=== PATIENT | female | born 1990 | race Caucasian/White ===

== ENCOUNTER 2016-10-08 20:51 | Emergency (ER) | payer MEDICAID ==
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
[2016-10-08] MEDS ORDERED: MVI, ADULT NO.4 WITH VIT K 10 ML, FOLIC ACID SYRINGE for ER 1 MG, THIAMINE 100 MG in IV... IV ONE ×4 (21:00)
== END 2016-10-08 22:48 | disposition home or self-care (01) ==
LOC: ER 20:51
DX: F20.9 Schizophrenia, unspecified (principal); R41.82 Altered mental status, unspecified; M79.672 Pain in left foot; M79.671 Pain in right foot; F19.10 Other psychoactive substance abuse, uncomplicated; Z91.19 Patient's noncompliance with other medical treatment and regimen
CPT/HCPCS: 82947; 99283

== ENCOUNTER 2016-10-08 23:53 | Observation (INO) | payer MEDICAID ==
[~2016-10-08] VITALS: Ht 162.6 cm; Wt 58.5 kg
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
--- NOTE | 2016-10-09 00:31 | EKG ---
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
[2016-10-09] MEDS ORDERED: DIPHENHYDRAMINE 50 MG/ML VIAL IV ONE (01:00)
[2016-10-09] MEDS ORDERED: IV RINGERS SOLUTION,LACTATED 1,000 ML IV SCH (01:00)
[2016-10-09] MEDS ORDERED: HALOPERIDOL LACT 5 MG/ML VIAL. IVP ONE (01:00)
[2016-10-09] MEDS ORDERED: LORAZEPAM 2 MG/ML VIAL IV ONE (01:00)
[2016-10-09] MEDS ORDERED: HALOPERIDOL DECANOATE IM ER 50 MG/ML VIAL. IM ONE ×2 (01:00→03:30)
--- NOTE | 2016-10-09 01:14 | RAD ---
CT head without contrast: Reason for examination: Mental status changes with confusion and lethargy tonight. Axial images were obtained through the brain. No contrast was administered. Ventricular systems are symmetric and not abnormally dilated. No midline shift is seen. There is no evidence of intracranial hemorrhage, infarct mass or edema. No abnormalities are seen in the orbits. The paranasal sinuses and mastoid air cells are clear. No acute abnormalities seen in the skull. Impression: No acute intracranial abnormality evident. Electronically signed by: Lucie Escobar MD (Oct 09, 2016 01:13:54)
[2016-10-09 01:18] LABS: BASO # 0.1 x10^3/uL (0.0-0.2); BASO % 1 % (0-3); EOS # 0.4 x10^3/uL (0.0-0.7); EOS % 3 % (0-3); HEMATOCRIT 39.7 % (36.0-47.0); HEMOGLOBIN 13.1 g/dL (12.0-15.5); LYMPH # 3.9 x10^3/uL (1.0-4.8); LYMPH % 32 % (24-48); MEAN CORPUSCULAR HEMOGLOBIN 30 pg (25-35); MEAN CORPUSCULAR HGB CONC 33 g/dL (31-37); MEAN CORPUSCULAR VOLUME 91 fL (79-100); MONO # 0.9 x10^3/uL (0.0-1.1); MONO % 7 % (0-9); NEUT # 6.8 x10^3uL (1.8-7.7); NEUT % 57 % (31-73); PLATELET COUNT 445 x10^3/uL (140-400); RED BLOOD COUNT 4.36 x10^6/uL (3.50-5.40); RED CELL DISTRIBUTION WIDTH 13.3 % (11.5-14.5)
[2016-10-09 01:29] LABS: BARBITURATES NEG (NEG); BENZODIAZEPINES NEG (NEG); CANNABINOIDS NEG (NEG); COCAINE NEG (NEG); METHADONE NEG (NEG); OPIATES NEG (NEG); PHENCYCLIDINE NEG (NEG)
[2016-10-09 01:29] LABS: ALBUMIN 3.6 g/dL (3.4-5.0); CREATININE 0.9 mg/dL (0.6-1.0); DIRECT BILIRUBIN 0.1 mg/dL (0.0-0.2); GFR 75.1; TOTAL BILIRUBIN 0.4 mg/dL (0.2-1.0); TOTAL PROTEIN 7.3 g/dL (6.4-8.2)
[2016-10-09 01:31] LABS: AMPHETAMINE/METHAMPHETAMINE POS (NEG)
[2016-10-09 01:34] LABS: BILIRUBIN,URINE NEG (NEG); CLARITY,URINE CLEAR; COLOR,URINE YELLOW; GLUCOSE,URINE NEG (NEG); NITRITE,URINE NEG (NEG); UROBILINOGEN,URINE 0.2 mg/dL (0.2 mg/dL)
[2016-10-09 01:35] LABS: BACTERIA,URINE FEW /HPF (0-FEW); RBC,URINE 0 /HPF (0-2); SQUAMOUS EPITHELIAL CELL,UR FEW /LPF; WBC,URINE OCC /HPF (0-4)
--- NOTE | 2016-10-09 02:26 | ACF ---
Admit Criteria Forms Admit Criteria Forms Admit Criteria Forms MENTAL STATUS CHANGE Clinical Indications for Inpatient Care (Place 'X' for any and all applicable criteria): Ongoing inpatient care may be needed for ANY ONE of the following(1)(2)(3)(5)(6) : [ ]I. Suspected serious etiology (eg, medical disorder, PATTERN DEVELOPER event) of mental status change [X]II. Danger to self or others not manageable at lower level of care [ ]III. Grave disability (eg, inability to perform self care necessary at lower level of care) [ ]IV. Agitation or inappropriate behavior interfering with care for primary condition (eg, attempting to discontinue lines or drains prematurely, unable to cooperate with respiratory care) [ ]V. Delirium [A] [D][E] as described by ANY ONE of the following(26): [ ]a) Delirium due to alcohol or sedative [F] withdrawal [ ]b) Delirium of uncertain etiology that has not responded to appropriate empiric treatment [ ]c) Delirium that prevents performance of a life-sustaining function (eg, feeding or hydrating oneself) [ ]. General contraindications and/or Inappropriate clinical situations for Observational Care in patients with Mental Status Change, when ANY ONE of the following is required: [ ]a) Prediction of prolongation of LOS based on ANY ONE of the following may be considered as a contraindication for observational care 2, 3, 4, 5, 6, 7, 8, 9, 10, 11 [ ]i) Age > 65 yrs. [ ]ii) Patient arriving by ambulance [ ]iii) Patient with high acuity [ ]iv) Patient requiring vital sign monitoring [ ]v) Patient on IV medication [ ]b) Systolic blood pressures 180mmHg 3,12 [ ]c) Patient with altered mental status including delirium and other alteration of consciousness, (3) [ ]d) Patient whose discharge disposition will be to a [place] [facility] home or rehabilitation home should not be managed in Emergency Department Observation Unit. CMS rule requires 3 days hospital stay before such placement.3,13 [ ]e) Patient with failure to thrive due to broad array of etiologies 3,16,17 [ ]f) Inability to ambulate 3,14 Extended stay beyond goal length of stay for the primary condition may be needed until ALL of the following are present(3)(5): [ ]a) Underlying medical etiology of mental status change is absent, or has been established and adequately treated [ ]b) Danger to self or others is absent or manageable at lower level of care. [ ]c) Behavior crisis management, including physical or chemical restraints, is not required or available at lower level of car [ ]d) Substance or alcohol withdrawal is absent or manageable at lower level of care. [ ]e) Behavioral symptoms (eg, agitation, somnolence, inappropriate behavior) are absent, or are manageable at lower level of care. The original [facility] [employer] content created by [facility] has been revised. The portions of the content which have been revised are identified through the use of italic text or in bold, and [facility] has neither reviewed nor approved the modified material. All other unmodified content is copyright [facility]. Please see references footnoted in the original [facility] [employer] edition 2016 ADRIÁN CASTREJON Oct 09, 2016 02:26
[2016-10-09] MEDS ORDERED: risperiDONE MICROSPHERES 25 MG/2 ML DISP.SYRIN. IM ONE (03:30)
[2016-10-09] MEDS ORDERED: ONDANSETRON PF 4 MG/2 ML VIAL. IV PRN (04:00)
[2016-10-09 05:15] VITALS: BP 96/60
[2016-10-09] MEDS: IV RINGERS SOLUTION,LACTATED 1,000 ML IV SCH ×2 (05:41→11:47)
--- NOTE | 2016-10-09 07:24 | RAD ---
Portable chest, 10/09/2016: History: Mental status change, cough and congestion The heart size and pulmonary vascularity are normal. The lungs are clear. There is no evidence of pleural fluid. IMPRESSION: No acute cardiopulmonary abnormality is detected.
--- NOTE | 2016-10-09 07:26 | RAD ---
Bilateral feet, 10/09/2016: History: Foot pain No fracture or dislocation is identified. No radiopaque foreign body is evident in the soft tissues. IMPRESSION: No acute foot abnormality is detected.
[2016-10-09 10:41] VITALS: BP 114/77
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
== END 2016-10-09 14:19 | disposition home or self-care (01) ==
LOC: ER 23:53 → INTOOBSV 10-09 04:05 → 1 SOUTH 10-09 04:05
PROVIDERS: ADMIT Family Medicine; ATTEND Family Medicine
DX: F20.9 Schizophrenia, unspecified (principal); F17.210 Nicotine dependence, cigarettes, uncomplicated; D72.829 Elevated white blood cell count, unspecified; F15.10 Other stimulant abuse, uncomplicated
CPT/HCPCS: 36415; 70450; 71010; 73630; 80048; 80076; 81001; 81025; 83735; 84443; 84484; 84702; 85027; 85730; 93005; 96361; 96372; 96374; 96375; 99285; G0378; G0480; G0481; J1200; J1630; J1631; J2060; J7120; G0379